=== PATIENT | male | born 1955 | race Caucasian/White ===

== ENCOUNTER 2024-03-04 21:35 | Inpatient (IN) | payer MEDICARE, MEDICAID ==
[~2024-03-04] VITALS: Ht 182.9 cm; Wt 104.1 kg
[~2024-03-04 21:35] MED LIST: ALBU18HF2 IH; BUDE10.2 INH; FURO40TA4 PO; INSU100V36 SQ; INSU100V9 SQ; LANS30CA56 PO; LORA-269 PO; Lisinopril PO; NEBI5TAB10 PO; NITR0.4T48 SL; NITR1PAT68 TD; OXYM-21; POTA-208 PO; ROSU5TAB PO; SPIIN INH; TERA5CAP4 PO; VORI200T3 PO
[2024-03-04 23:22] LABS: ALBUMIN 3.1 G/DL (3.4-5.0); ANION GAP 10 (8-16); BLOOD UREA NITROGEN 23 MG/DL (7-18); BUN/CREATININE RATIO 16.4 (10.0-20.0); CALCIUM 8.7 MG/DL (8.5-10.1); CHLORIDE 101 MMOL/L (99-107); GLUCOSE 199 MG/DL (70-104); LIPASE 14 U/L (16-77); POTASSIUM 4.6 MMOL/L (3.5-5.1); SODIUM 135 MMOL/L (135-145); TOTAL CARBON DIOXIDE 24.3 MMOL/L (24-32); eCRCL 57 ML/MIN; eGFR 51 ML/MIN
[2024-03-04 23:25] LABS: BILIRUBIN,URINE SMALL (Neg); CLARITY,URINE SLIGHTLY CLOUDY (Clear); COLOR,URINE AMBER (Yellow); GLUCOSE, URINE NEGATIVE (Neg); KETONES,URINE NEGATIVE (Neg); LEUKOCYTE ESTERASE ,URINE NEGATIVE (Neg); NITRITES, URINE NEGATIVE (Neg); OCCULT BLOOD,URINE NEGATIVE (Neg); PROTEIN,URINE 30 mg/dl (Neg)
[2024-03-04 23:27] LABS: BASOPHILS % (AUTO) 0.4 % (0-1); EOSINOPHILS # (AUTO) 0.1 X10'3 (0-0.9); EOSINOPHILS % (AUTO) 0.9 % (0-6); HEMATOCRIT 35.9 % (42.0-52.0); HEMOGLOBIN 11.9 g/dl (14.0-17.9); LYMPHOCYTES # (AUTO) 1.7 X10'3 (1.1-4.8); LYMPHOCYTES % (AUTO) 13.3 % (21-51); MEAN CORPUSCULAR HEMOGLOBIN 27.4 PG (27.0-31.0); MEAN CORPUSCULAR HGB CONC 33.1 g/dL (33.0-36.5); MEAN CORPUSCULAR VOLUME 82.8 FL (78-98); MEAN PLATELET VOLUME 10.9 FL (7.4-10.4); MONOCYTES # (AUTO) 1.3 X10'3 (0-0.9); MONOCYTES % (AUTO) 10.4 % (2-12); NEUTROPHILS # (AUTO) 9.7 X10'3 (1.8-7.7); PLATELET COUNT 190 X10'3 (140-440); RED BLOOD COUNT 4.34 X10'6 (4.70-6.10); RED CELL DISTRIBUTION WIDTH 14.9 % (11.5-14.5); WHITE BLOOD COUNT 12.9 X10'3 (4.5-11.0)
[2024-03-04 23:28] LABS: UA COLLECTION TYPE CLN CATCH MIDSTREAM
[2024-03-04 23:40] LABS: HYALINE CASTS 0-3 /LPF (NEGATIVE)
[2024-03-04 23:41] LABS: BACTERIA,URINE FEW /HPF (Neg); RBC,URINE 0-2 /HPF (0-2); WBC,URINE 0-4 /HPF (0-4)
[2024-03-04 23:42] LABS: MUCUS STRANDS MANY /LPF (Neg); SQUAMOUS EPITHELIAL CELL,UR NONE SEEN /LPF (FEW)
[2024-03-04 23:56] LABS: MAGNESIUM 1.9 MG/DL (1.5-2.4)
[2024-03-05] VITALS (11 sets, daily range): BP systolic 85–116; BP diastolic 63–65; PULSE 69–88; RESP 15–18; TEMP 97.1–98; O2SAT 92–99
[2024-03-05] MEDS: piperacillin/tazo 4.5gm/100ml 100 ML IV STA (00:15)
[2024-03-05] MEDS ORDERED: vancomycin/NS 1 GM ADD-VANTAGE 250 ML X 1 DOSE IV ONE (00:20)
[2024-03-05] MEDS ORDERED: CLINDAMYCIN 600mg IN NS 50ML 50 ML IV STA (00:44)
[2024-03-05] MEDS ORDERED: magnesium 4gm in 100ml NS 100 ML IV PRN (00:50)
[2024-03-05] MEDS ORDERED: potassium Cl 40MEQ/1/2NS 520ml 520 ML IV PRN (00:50)
[2024-03-05] MEDS ORDERED: acetaminophen 325mg tablet PO PRN ×2 (00:50)
[2024-03-05] MEDS ORDERED: HYDROcodone/acetaminophen 5mg/325mg tablet PO PRN (00:50)
[2024-03-05] MEDS ORDERED: potassium Cl 20 mEq SR tablet PO PRN ×2 (00:50)
[2024-03-05] MEDS ORDERED: morphine 2 MG/ML inj. syringe IV PRN ×2 (00:50)
[2024-03-05] MEDS ORDERED: magnesium Cl slow-release 64mg tablet PO PRN (00:50)
[2024-03-05] MEDS ORDERED: magnesium 2GM in 50ml NS 50 ML IV PRN (00:50)
[2024-03-05] MEDS ORDERED: dextrose 50%-water 50ml dispensing syringe IV PRN ×2 (01:00)
[2024-03-05] MEDS ORDERED: glucagon, human recombinant 1mg kit SUBCUT PRN (01:00)
[2024-03-05] MEDS ORDERED: DEXTROSE 15 GM of carb/4 tabs (each vial/BOTTLE has 4 tablets) PO PRN ×2 (01:00)
[2024-03-05] MEDS: morphine 2 MG/ML inj. syringe IV PRN (01:08)
[2024-03-05] MEDS: clindamycin 600mg/D5W 50ml 50 ML IV STA (01:10)
[2024-03-05] MEDS: normal saline 1000ml 1,000 ML IV SCH (01:11)
[2024-03-05 01:18] LABS: PLATELET ESTIMATE NORMAL
[2024-03-05 01:22] LABS: LARGE PLATELETS MODERATE
[2024-03-05] MEDS ORDERED: EDOX60TA2 PO (01:54)
[2024-03-05] MEDS ORDERED: DUTA0.5C36 PO (01:54)
[2024-03-05] MEDS ORDERED: FURO40TA4 (01:54)
[2024-03-05] MEDS ORDERED: TIOT4MIS2 PO (01:54)
[2024-03-05] MEDS ORDERED: SACU1TAB7 (01:54)
[2024-03-05] MEDS ORDERED: LAN0.125T PO (01:54)
[2024-03-05] MEDS ORDERED: SPIR25TA5 PO (01:54)
[2024-03-05] MEDS: vancomycin/NS 1 GM ADD-VANTAGE 250 ML X 1 DOSE IV ONE (02:06)
[2024-03-05] MEDS: nicotine 14mg patch - 24hr TD SCH (02:34)
[2024-03-05] MEDS: heparin, porcine 5000 units/ml vial SQ SCH (07:51)
[2024-03-05] MEDS: clindamycin 600mg/D5W 50ml 50 ML IV SCH (07:52)
[2024-03-05] MEDS: insulin Lispro (HumaLOG) vial - multi-dose SQ SCH ×2 (09:04)
[2024-03-05] MEDS: vancomycin/NS 1 GM ADD-VANTAGE 250 ML IV SCH (12:34)
[2024-03-05] MEDS ORDERED: LORazepam 1 MG tablet PO PRN (13:45)
[2024-03-05] MEDS ORDERED: nitroGLYCERIN 0.4mg SUBLingual tab SL PRN (13:45)
[2024-03-05] MEDS ORDERED: oxymetazoline 15 ML nasal spray NS PRN (13:45)
[2024-03-05] MEDS ORDERED: albuterol 2.5 MG/3 ML nebule NEB PRN (14:00)
[2024-03-05] MEDS: albuterol 2.5 MG/3 ML nebule NEB SCH (15:00)
[2024-03-05] MEDS: digoxin 125mcg (0.125mg) tablet PO SCH (15:14)
[2024-03-05] MEDS: ipratropium/albuterol 3ml nebule NEB PRN (15:39)
[2024-03-05] MEDS: dutasteride 0.5 MG capsule PO SCH (16:00)
[2024-03-05] MEDS ORDERED: INSULIN GLARGINE HUM REC ANLOG 45 UNIT SQ SCH (20:00)
[2024-03-05] MEDS: metoprolol tartrate 50mg tablet PO SCH (20:04)
[2024-03-05] MEDS: furosemide 40mg tablet PO SCH (20:05)
[2024-03-05] MEDS: terazosin 5mg capsule PO SCH (20:08)
[2024-03-05] MEDS ORDERED: budesonide 0.5mg/2ml UD nebule IH SCH (21:00)
[2024-03-05] MEDS ORDERED: temazepam 15mg capsule PO PRN (21:00)
[2024-03-05] MEDS: insulin glargine (Lantus) pen - multi-dose SQ SCH (21:21)
[2024-03-05] MEDS: ipratropium/albuterol 3ml nebule NEB SCH (21:27)
[2024-03-05] MEDS: budesonide 0.5mg/2ml UD nebule IH SCH (21:27)
[2024-03-06] VITALS (19 sets, daily range): BP systolic 92–129; BP diastolic 47–66; PULSE 69–86; RESP 10–22; TEMP 97–98; O2SAT 93–99
[2024-03-06] MEDS ORDERED: ipratropium 0.5 MG/2.5ML nebule NEB SCH (03:00)
[2024-03-06 07:10] LABS: LYMPHOCYTES # (AUTO) 1.5 X10'3 (1.1-4.8); MONOCYTES # (AUTO) 1.2 X10'3 (0-0.9); WHITE BLOOD COUNT 9.3 X10'3 (4.5-11.0)
[2024-03-06 07:13] LABS: BASOPHILS % (AUTO) 0.4 % (0-1); EOSINOPHILS # (AUTO) 0.2 X10'3 (0-0.9); EOSINOPHILS % (AUTO) 1.7 % (0-6); HEMATOCRIT 32.4 % (42.0-52.0); LYMPHOCYTES % (AUTO) 16.6 % (21-51); MEAN CORPUSCULAR HEMOGLOBIN 27.9 PG (27.0-31.0); MEAN CORPUSCULAR HGB CONC 33.9 g/dL (33.0-36.5); MEAN CORPUSCULAR VOLUME 82.3 FL (78-98); MEAN PLATELET VOLUME 11.2 FL (7.4-10.4); MONOCYTES % (AUTO) 13.1 % (2-12); NEUTROPHILS # (AUTO) 6.4 X10'3 (1.8-7.7); NEUTROPHILS % (AUTO) 68.2 % (42-75); PLATELET COUNT 168 X10'3 (140-440); RED BLOOD COUNT 3.94 X10'6 (4.70-6.10); RED CELL DISTRIBUTION WIDTH 14.6 % (11.5-14.5)
[2024-03-06] MEDS: atorvastatin 20mg tablet PO SCH (07:20)
[2024-03-06] MEDS: spironolactone 25 MG tablet PO SCH (07:20)
[2024-03-06] MEDS: pantoprazole 40mg Tablet.DR PO SCH (07:21)
[2024-03-06] MEDS: EDOXABAN 60 MG PO SCH (07:21)
[2024-03-06] MEDS: ondansetron/PF 4mg/2ml inj IV PRN (07:23)
[2024-03-06 07:24] LABS: ALANINE AMINOTRANSFERASE 59 U/L (12-78); ALBUMIN 2.6 G/DL (3.4-5.0); ALBUMIN/GLOBULIN RATIO 0.7 (1.1-1.5); ALKALINE PHOSPHATASE 679 IU/L (46-116); ANION GAP 11 (8-16); ASPARTATE AMINO TRANSFERASE 58 U/L (10-37); BILIRUBIN,TOTAL 1.1 MG/DL (0.1-1.0); BLOOD UREA NITROGEN 24 MG/DL (7-18); BUN/CREATININE RATIO 18.3 (10.0-20.0); CALCIUM 8.4 MG/DL (8.5-10.1); CHLORIDE 101 MMOL/L (99-107); CREATININE 1.31 MG/DL (0.60-1.10); GLUCOSE 248 MG/DL (70-104); POTASSIUM 4.6 MMOL/L (3.5-5.1); SODIUM 133 MMOL/L (135-145); TOTAL CARBON DIOXIDE 21.5 MMOL/L (24-32); TOTAL PROTEIN 6.4 G/DL (6.4-8.2); eCRCL 61 ML/MIN; eGFR 55 ML/MIN
[2024-03-06 07:39] LABS: BURR CELLS FEW; ELLIPTOCYTES FEW; LARGE PLATELETS MODERATE; PLATELET ESTIMATE NORMAL; TARGET CELLS FEW
[2024-03-06] MEDS ORDERED: non-formulary drug (Tiotropium Bromide (SPIRIVA inhaler) 1 CAP) INH SCH (08:00)
[2024-03-06] MEDS ORDERED: morphine 2 MG/ML inj. syringe IV PRN (08:25)
[2024-03-06] MEDS ORDERED: ondansetron/PF 4mg/2ml inj IV PRN (08:25)
[2024-03-06] MEDS ORDERED: meperidine/PF 25mg/ml syringe IV PRN ×3 (08:25)
[2024-03-06] MEDS ORDERED: enalaprilat dihydrate 2.5mg/2ml vial IV PRN (08:25)
[2024-03-06] MEDS ORDERED: morphine 4 MG/ML inj SYRINge IV PRN (08:25)
[2024-03-06] MEDS ORDERED: labetalol 20mg/4ml (5mg/ml) syringe IV PRN (08:25)
[2024-03-06] MEDS ORDERED: proCHLORperazine 10 MG/2 ml inj IV PRN (08:25)
[2024-03-06] MEDS ORDERED: ceFAZolin 1000mg inj ONE (10:17)
[2024-03-06] MEDS ORDERED: midazolam 1 mg/ML 2ml injection ONE (10:31)
[2024-03-06] MEDS ORDERED: fentaNYL/PF 50MCG/1 ML 2ML syringe ONE (10:31)
[2024-03-06] MEDS: insulin regular, human 10 units/0.1 ml syringe IV ONE (10:39)
[2024-03-06] MEDS ORDERED: sevoflurane 250ml liquid IH ONE (10:42)
[2024-03-06] MEDS: ceFAZolin 1000mg inj IR ONE (11:00)
[2024-03-06] MEDS ORDERED: propofol inj 20 ML IV ONE (11:01)
[2024-03-06] MEDS ORDERED: ondansetron/PF 4mg/2ml inj ONE (11:01)
[2024-03-06] MEDS ORDERED: LIDOcaine 1%/PF 5ML 10 MG/ML VIAL ONE (11:02)
[2024-03-06] MEDS: insulin regular, human U-100 3ml vial - multi-dose IV ONE (11:23)
[2024-03-06] MEDS: VANCOMYCIN LEVEL IV ONE (12:42)
[2024-03-06] MEDS: ringers solution, lacted 1,000 ML IV SCH (12:51)
[2024-03-06] MEDS: HYDROcodone/acetaminophen 10/325mg tab PO PRN (12:59)
[2024-03-07] VITALS (14 sets, daily range): BP systolic 103–139; BP diastolic 50–68; PULSE 69–89; RESP 14–19; TEMP 97.6–98.7; O2SAT 96–98
[2024-03-07] MEDS: mag hydrox/Alum hydrox/simeth 30ml oral suspension PO ONE (01:14)
[2024-03-07] MEDS: VANCOmycin 1250MG/NS 250ml Bag 250 ML IV SCH (01:16)
[2024-03-07 07:29] LABS: EOSINOPHILS % (AUTO) 0 % (0-6); HEMOGLOBIN 10.8 g/dl (14.0-17.9); LYMPHOCYTES # (AUTO) 0.8 X10'3 (1.1-4.8); MONOCYTES # (AUTO) 0.8 X10'3 (0-0.9)
[2024-03-07 07:32] LABS: BASOPHILS % (AUTO) 0.2 % (0-1); MEAN CORPUSCULAR HEMOGLOBIN 27.7 PG (27.0-31.0); MEAN CORPUSCULAR HGB CONC 32.7 g/dL (33.0-36.5); MEAN CORPUSCULAR VOLUME 84.7 FL (78-98); MEAN PLATELET VOLUME 10.9 FL (7.4-10.4); NEUTROPHILS # (AUTO) 8.3 X10'3 (1.8-7.7); NEUTROPHILS % (AUTO) 83.8 % (42-75); RED BLOOD COUNT 3.89 X10'6 (4.70-6.10); RED CELL DISTRIBUTION WIDTH 14.9 % (11.5-14.5); WHITE BLOOD COUNT 9.9 X10'3 (4.5-11.0)
[2024-03-07] MEDS: insulin Lispro (HumaLOG) vial - multi-dose SQ STA (07:53)
[2024-03-07 08:00] LABS: % IRON SATURATION 9 % (11-46); IRON 26 UG/DL (53-167); TOTAL IRON BINDING CAPACITY 285 UG/DL (259-388)
[2024-03-07 08:06] LABS: ALANINE AMINOTRANSFERASE 46 U/L (12-78); ALBUMIN 2.8 G/DL (3.4-5.0); ALBUMIN/GLOBULIN RATIO 0.7 (1.1-1.5); ALKALINE PHOSPHATASE 603 IU/L (46-116); ANION GAP 15 (8-16); ASPARTATE AMINO TRANSFERASE 21 U/L (10-37); BILIRUBIN,TOTAL 0.7 MG/DL (0.1-1.0); BLOOD UREA NITROGEN 31 MG/DL (7-18); BUN/CREATININE RATIO 16.8 (10.0-20.0); CALCIUM 8.4 MG/DL (8.5-10.1); CHLORIDE 98 MMOL/L (99-107); CREATININE 1.85 MG/DL (0.60-1.10); POTASSIUM 5.3 MMOL/L (3.5-5.1); SODIUM 132 MMOL/L (135-145); TOTAL CARBON DIOXIDE 19.3 MMOL/L (24-32); TOTAL PROTEIN 6.6 G/DL (6.4-8.2); eCRCL 43 ML/MIN; eGFR 37 ML/MIN
[2024-03-07 08:07] LABS: PLATELET COUNT 161 X10'3 (140-440)
[2024-03-07 08:08] LABS: PLATELET ESTIMATE NORMAL
[2024-03-07 08:09] LABS: BURR CELLS FEW; ELLIPTOCYTES FEW; LARGE PLATELETS FEW
[2024-03-07 08:10] LABS: SCHISTOCYTES FEW; TEAR DROP CELLS FEW
[2024-03-07 08:15] LABS: GLUCOSE 493 MG/DL (70-104)
[2024-03-07 09:12] LABS: FERRITIN 118 NG/ML (26-388)
[2024-03-07] MEDS: insulin glargine (Lantus) pen - multi-dose SQ SCH (09:56)
[2024-03-07] MEDS: insulin Lispro (HumaLOG) vial - multi-dose SQ SCH (12:00)
[2024-03-07] MEDS ORDERED: insulin Lispro (HumaLOG) vial - multi-dose SQ SCH (12:00)
[2024-03-07] MEDS: mag hydrox/Alum hydrox/simeth 30ml oral suspension PO PRN (13:03)
[2024-03-07] MEDS: clindamycin 150mg capsule PO SCH (17:31)
[2024-03-07] MEDS: famotidine/PF 10 mg/ml inj IV SCH (18:28)
[2024-03-07] MEDS ORDERED: famotidine/PF 10 mg/ml inj IV SCH (20:00)
[2024-03-08 02:33] VITALS: PULSE 80; RESP 18; O2SAT 96
[2024-03-08 02:40] VITALS: PULSE 81; RESP 18
[2024-03-08 06:00] VITALS: BP 131/73; PULSE 79; RESP 18; TEMP 97.3; O2SAT 97
[2024-03-08 06:36] LABS: BASOPHILS # (AUTO) 0.1 X10'3 (0-0.2); HEMOGLOBIN 10.3 g/dl (14.0-17.9); MEAN CORPUSCULAR HEMOGLOBIN 27.6 PG (27.0-31.0); NEUTROPHILS # (AUTO) 6.1 X10'3 (1.8-7.7); RED BLOOD COUNT 3.73 X10'6 (4.70-6.10)
[2024-03-08 06:39] LABS: BASOPHILS % (AUTO) 0.7 % (0-1); EOSINOPHILS # (AUTO) 0.2 X10'3 (0-0.9); EOSINOPHILS % (AUTO) 1.8 % (0-6); HEMATOCRIT 30.8 % (42.0-52.0); LYMPHOCYTES # (AUTO) 1.5 X10'3 (1.1-4.8); LYMPHOCYTES % (AUTO) 17.5 % (21-51); MEAN CORPUSCULAR HGB CONC 33.4 g/dL (33.0-36.5); MEAN CORPUSCULAR VOLUME 82.6 FL (78-98); MEAN PLATELET VOLUME 10.8 FL (7.4-10.4); MONOCYTES % (AUTO) 10.9 % (2-12); NEUTROPHILS % (AUTO) 69.1 % (42-75); PLATELET COUNT 190 X10'3 (140-440); RED CELL DISTRIBUTION WIDTH 14.9 % (11.5-14.5); WHITE BLOOD COUNT 8.8 X10'3 (4.5-11.0)
[2024-03-08 06:56] LABS: LARGE PLATELETS FEW; PLATELET ESTIMATE NORMAL
[2024-03-08 07:00] LABS: ALANINE AMINOTRANSFERASE 43 U/L (12-78); ALBUMIN 2.9 G/DL (3.4-5.0); ALBUMIN/GLOBULIN RATIO 0.7 (1.1-1.5); ALKALINE PHOSPHATASE 528 IU/L (46-116); ANION GAP 13 (8-16); ASPARTATE AMINO TRANSFERASE 14 U/L (10-37); BILIRUBIN,TOTAL 0.6 MG/DL (0.1-1.0); BLOOD UREA NITROGEN 28 MG/DL (7-18); BUN/CREATININE RATIO 16.9 (10.0-20.0); CALCIUM 8.8 MG/DL (8.5-10.1); CHLORIDE 100 MMOL/L (99-107); CREATININE 1.66 MG/DL (0.60-1.10); GLUCOSE 386 MG/DL (70-104); POTASSIUM 4.7 MMOL/L (3.5-5.1); SODIUM 134 MMOL/L (135-145); TOTAL CARBON DIOXIDE 20.7 MMOL/L (24-32); TOTAL PROTEIN 6.9 G/DL (6.4-8.2); eCRCL 48 ML/MIN; eGFR 42 ML/MIN
[2024-03-08 08:45] VITALS: PULSE 88; RESP 18; O2SAT 98
[2024-03-08 08:54] VITALS: PULSE 87; RESP 16
[2024-03-08] MEDS: insulin glargine (Lantus) pen - multi-dose SQ ONE (09:53)
[2024-03-08 10:00] VITALS: BP 118/52; PULSE 77; RESP 16; TEMP 97.6; O2SAT 98
[2024-03-08] MEDS ORDERED: HYDR-3964 PO (10:44)
[2024-03-08] MEDS ORDERED: LACTC PO (10:45)
[2024-03-08] MEDS ORDERED: famotidine/PF 10 mg/ml inj IV SCH (12:34)
[2024-03-08] MEDS ORDERED: CIPR-259 PO (12:43)
[2024-03-08] MEDS ORDERED: METR-159 PO (12:43)
[2024-03-08] MEDS: VANCOMYCIN LEVEL IV ONE (13:19)
[2024-03-08] MEDS: VANCOMYCIN 750MG IV in NS 250 ML IV SCH (14:00)
[2024-03-08] MEDS ORDERED: insulin glargine (Lantus) pen - multi-dose SQ SCH (20:00)
[2024-03-10] MEDS ORDERED: VANCOMYCIN LEVEL IV ONE (01:30)
== END 2024-03-08 14:15 | disposition home or self-care (01) | DRG 602 ==
LOC: ER 21:35 → ED HOLD 03-05 00:55 → ORTHO 4S 03-05 03:40
PROVIDERS: ADMIT Internal Medicine; ATTEND Internal Medicine
PROC: 0W9M0ZZ Drainage of Male Perineum, Open Approach (ICD-10-PCS; principal; 2024-03-06 10:42)
DX: L02.215 Cutaneous abscess of perineum (principal); N17.0 Acute kidney failure with tubular necrosis; N48.0 Leukoplakia of penis; J44.9 Chronic obstructive pulmonary disease, unspecified; E66.01 Morbid (severe) obesity due to excess calories; G47.30 Sleep apnea, unspecified; E78.00 Pure hypercholesterolemia, unspecified; I11.0 Hypertensive heart disease with heart failure; N28.9 Disorder of kidney and ureter, unspecified; F17.210 Nicotine dependence, cigarettes, uncomplicated; E11.9 Type 2 diabetes mellitus without complications; I25.10 Atherosclerotic heart disease of native coronary artery without angina pectoris; D64.9 Anemia, unspecified; L03.315 Cellulitis of perineum; I50.9 Heart failure, unspecified; I25.2 Old myocardial infarction; Z79.51 Long term (current) use of inhaled steroids; Z82.41 Family history of sudden cardiac death; Z95.0 Presence of cardiac pacemaker; Z95.1 Presence of aortocoronary bypass graft; Z68.31 Body mass index [BMI] 31.0-31.9, adult; Z88.1 Allergy status to other antibiotic agents; Z79.899 Other long term (current) drug therapy; Z87.01 Personal history of pneumonia (recurrent); Z71.6 Tobacco abuse counseling
CPT/HCPCS: 36415; 71045; 74018; 74176; 80048; 80053; 80162; 80202; 81001; 82607; 82728; 82948; 83036; 83540; 83550; 83605; 83690; 83735; 84145; 85008; 85025; 87040; 87070; 87075; 87077; 87081; 87186; 93005; 94640; 94760; 96365; 99291; A4618; A6253; A6258; A6407; A6449; A7000; G0378; J0690; J1100; J1644; J1815; J2250; J2270; J2405; J2543; J2704; J3010; J3370; J3490; J7030; J7120

== ENCOUNTER 2024-12-03 18:37 | Emergency (ER) | payer MEDICARE, MEDICAID ==
[~2024-12-03] VITALS: Ht 182.9 cm; Wt 102.0 kg
[~2024-12-03 18:37] MED LIST changes: +DUTA0.5C36 PO; +EDOX60TA2 PO; +FURO40TA4; +HYDR-3964 PO; +LACTC PO; +LAN0.125T PO; -Lisinopril PO; -NEBI5TAB10 PO; +NEBI5TAB9 PO; -NITR1PAT68 TD; -POTA-208 PO; +SACU1TAB7; +SPIR25TA5 PO; +TIOT4MIS2 PO; -VORI200T3 PO
[2024-12-03] MEDS: mag hydrox/Alum hydrox/simeth 30ml oral suspension PO ONE (19:18)
[2024-12-03] MEDS: ondansetron/PF 4mg/2ml inj IV ONE (19:19)
[2024-12-03 21:09] VITALS: BP 110/80; PULSE 80; RESP 18; TEMP 98.6; O2SAT 100
== END 2024-12-03 21:00 | disposition home or self-care (01) ==
LOC: ER 18:38
DX: T38.3X1A Poisoning by insulin and oral hypoglycemic [antidiabetic] drugs, accidental (unintentional), initial encounter (principal); R11.0 Nausea; I25.10 Atherosclerotic heart disease of native coronary artery without angina pectoris; I11.0 Hypertensive heart disease with heart failure; I50.9 Heart failure, unspecified; I25.2 Old myocardial infarction; J44.9 Chronic obstructive pulmonary disease, unspecified; E78.00 Pure hypercholesterolemia, unspecified; E11.9 Type 2 diabetes mellitus without complications; F17.210 Nicotine dependence, cigarettes, uncomplicated; Z90.89 Acquired absence of other organs; Z95.0 Presence of cardiac pacemaker; Z95.1 Presence of aortocoronary bypass graft; Z88.1 Allergy status to other antibiotic agents; Z79.52 Long term (current) use of systemic steroids; Z79.4 Long term (current) use of insulin; Z79.899 Other long term (current) drug therapy; Y92.89 Other specified places as the place of occurrence of the external cause
CPT/HCPCS: 82948; 96374; 99284; J2405